=== PATIENT | female | born 1975 | race Caucasian/White ===

== ENCOUNTER 2016-12-20 16:05 | Emergency (ER) | payer SELFPAY ==
[~2016-12-20] VITALS: Ht 172.7 cm; Wt 75.0 kg
[2016-12-20 16:12] VITALS: BP 117/80; PULSE 71; RESP 15; TEMP 98.2; O2SAT 100
--- NOTE | 2016-12-20 16:28 | PD ---
HPI Chief Complaint: Medication Refill Request Time Seen by Provider: 16:25 Travel History International Travel<30 days: No Contact w/Intl Traveler<30days: No Traveled to known affect area: No History of Present Illness HPI 41-year-old female complains of shortness of breath and wheezing and requesting refill of albuterol inhaler. Patient has history of asthma. Patient is a smoker. Patient states that she has intermittent wheezing for the past few days. Patient denies any fever chills. Patient denies any productive cough. Patient does not want any albuterol treatment today. PFSH Past Medical History ?: Not LMP: ABLATION Social History Tobacco Use: No Allergies-Medications (Allergen,Severity, Reaction): Coded Allergies: Hydroxyzine (Verified Allergy, Intermediate, ANXIETY, 12/20/16) Reported Meds & Prescriptions Reported Meds & Active Scripts Active Proair Hfa 8.5 GM Inh (Albuterol Sulfate) 90 Mcg/Act Aer 2 Puff INH Q4-6H PRN 108 mcg/actuation Reported Oxycodone (Oxycodone HCl) 15 Mg Tab 15 Mg PO Q8H PRN Ibuprofen 800 Mg Tab 800 Mg PO Q8H PRN Review of Systems General / Constitutional: No: Fever Eyes: No: Visual changes HENT: No: Headaches Cardiovascular: No: Chest Pain or Discomfort Respiratory: Positive: Wheezing, No: Shortness of Breath Gastrointestinal: No: Abdominal Pain Genitourinary: No: Dysuria Musculoskeletal: No: Pain Skin: No Rash Neurologic: No: Weakness Psychiatric: No: Depression Endocrine: No: Polydipsia Hematologic/Lymphatic: No: Easy Bruising Physical Exam Narrative GENERAL: Well-nourished, well-developed patient. SKIN: Focused skin assessment warm/dry. HEAD: Normocephalic. EYES: No scleral icterus. No injection or drainage. NECK: Supple, trachea midline. No JVD or lymphadenopathy. CARDIOVASCULAR: Regular rate and rhythm without murmurs, gallops, or rubs. RESPIRATORY: Breath sounds equal bilaterally. No accessory muscle use. Patient has mild expiratory wheezes bilaterally. No rhonchi. GASTROINTESTINAL: Abdomen soft, non-tender, nondistended. MUSCULOSKELETAL: No cyanosis, or edema. BACK: Nontender without obvious deformity. No CVA tenderness. Data Data Last Documented VS Vital Signs Date Time Temp Pulse Resp B/P Pulse Ox O2 Delivery O2 Flow Rate FiO2 12/20/16 16:12 98.2 71 15 117/80 100 MDM Medical Decision Making Medical Screen Exam Complete: Yes Emergency Medical Condition: Yes Differential Diagnosis Differential diagnosis including bronchitis, pneumonia, acute exacerbation of asthma. Narrative Course 41-year-old female with history asthma and requesting refill albuterol inhaler. Patient has mild expiratory wheezes on examination today. Patient does not want any albuterol treatment today. Diagnosis Primary Impression: Acute asthma exacerbation Qualified Code: J45.21 - Mild intermittent asthma with acute exacerbation Patient Instructions: General Instructions Additional Instructions: Use albuterol inhaler as needed. Follow-up with personal physician. Return if worse. Med/Other Pt SpecificInfo: Prescription(s) given Scripts Albuterol 8.5 GM Inh (Proair Hfa 8.5 GM Inh)90 Mcg/Act Aer2 Puff INH Q4-6H PRN ( SHORTNESS OF BREATH) #1 INHALER 108 mcg/actuation Prov:Jefferson Ireland MD 12/20/16 Disposition: 01 DISCHARGE HOME Condition: Stable Jefferson Ireland MD Dec 20, 2016 16:28
[2016-12-20] MEDS ORDERED: ALBUAER3 INH (16:30)
[2016-12-20] MEDS ORDERED: IBUP800T23 PO (16:33)
[2016-12-20] MEDS ORDERED: OXYC15TA PO (16:33)
== END 2016-12-20 17:05 | disposition home or self-care (01) ==
LOC: PHEFT 16:05
DX: J45.21 Mild intermittent asthma with (acute) exacerbation (principal)
CPT/HCPCS: 99283